=== PATIENT | male | born 1995 | race Caucasian/White ===

== ENCOUNTER 2017-11-21 20:34 | Emergency (ER) | payer OTHER ==
[~2017-11-21] VITALS: Ht 182.9 cm; Wt 129.3 kg
[~2017-11-21 20:34] MED LIST: LEXAPRO 10 MG T10 M1 PO; TOPROL XL50 MG; XANAX 0.5 MG0.5 M1 PO
== END 2017-11-21 22:39 | disposition home or self-care (01) ==
LOC: ER 20:34
DX: R56.9 Unspecified convulsions (principal); F41.9 Anxiety disorder, unspecified; F32.9 Major depressive disorder, single episode, unspecified

== ENCOUNTER 2018-11-30 20:03 | Emergency (ER) | payer BC ==
[~2018-11-30] VITALS: Ht 188 cm; Wt 136.1 kg
[2018-11-30 21:37] LABS: HEMATOCRIT 45.3 % (42.0-52.0); HEMOGLOBIN 16.1 gm/dL (14.0-18.0); MCH 32.4 pg (26.0-34.0); MCHC 35.5 g/dL (28.0-37.0); MCV 91.2 fL (80.0-100.0); RBC 4.97 mil/uL (4.50-6.00); RDW 13.2 % (10.5-14.5); WBC 10.3 thou/uL (4.0-11.0)
[2018-11-30 21:44] LABS: CALCIUM 8.9 mg/dL (8.5-10.1); CREATININE 0.9 mg/dL (0.7-1.3); POTASSIUM 3.7 mmol/L (3.5-5.1)
[2018-11-30 21:50] LABS: ALBUMIN 3.9 g/dL (3.4-5.0); TOTAL BILIRUBIN 0.9 mg/dL (<0.1-1.0)
[2018-11-30 22:33] VITALS: BP 156/83
== END 2018-11-30 22:33 | disposition home or self-care (01) ==
LOC: ER 20:03
PROVIDERS: Emergency Medicine
DX: T51.0X1A Toxic effect of ethanol, accidental (unintentional), initial encounter (principal); F41.9 Anxiety disorder, unspecified; F32.9 Major depressive disorder, single episode, unspecified